=== PATIENT | female | born 1950 | race Caucasian/White ===

== ENCOUNTER → 2016-05-16 | Outpatient (CLI) | payer MEDICARE ==
[~2016-05-16] MED LIST: CALMOSEPTINE OINTMENT 3.5 G PACKET TOP ONE
== END ==
LOC: NWCC 10:34
PROVIDERS: ATTEND Internal Medicine
DX: T87.89 Other complications of amputation stump (principal); Y83.8 Other surgical procedures as the cause of abnormal reaction of the patient, or of later complication, without mention of misadventure at the time of the procedure; I70.233 Atherosclerosis of native arteries of right leg with ulceration of ankle; L97.312 Non-pressure chronic ulcer of right ankle with fat layer exposed; R60.0 Localized edema; I70.291 Other atherosclerosis of native arteries of extremities, right leg
CPT/HCPCS: 11042; 11045; A6209; A9270; G0463

== ENCOUNTER → 2016-05-30 | Outpatient (CLI) | payer MEDICARE ==
[~2016-05-30] MED LIST changes: -CALMOSEPTINE OINTMENT 3.5 G PACKET TOP ONE; +SALINE FLUSH 10ml SYRINGE IVF ONE
== END ==
LOC: NWCC 11:11
PROVIDERS: ATTEND Internal Medicine
DX: T87.89 Other complications of amputation stump (principal); Y83.8 Other surgical procedures as the cause of abnormal reaction of the patient, or of later complication, without mention of misadventure at the time of the procedure; I70.233 Atherosclerosis of native arteries of right leg with ulceration of ankle; L97.312 Non-pressure chronic ulcer of right ankle with fat layer exposed; R60.0 Localized edema; I70.291 Other atherosclerosis of native arteries of extremities, right leg
CPT/HCPCS: 11042; A6209; G0463

== ENCOUNTER → 2016-06-13 | Outpatient (CLI) | payer MEDICARE, MEDICAID | LOC: NWCC 10:47 | PROVIDERS: ATTEND Internal Medicine | DX: T87.9 Unspecified complications of amputation stump (principal); Y83.8 Other surgical procedures as the cause of abnormal reaction of the patient, or of later complication, without mention of misadventure at the time of the procedure; I70.248 Atherosclerosis of native arteries of left leg with ulceration of other part of lower leg; L97.822 Non-pressure chronic ulcer of other part of left lower leg with fat layer exposed; I70.233 Atherosclerosis of native arteries of right leg with ulceration of ankle; L97.312 Non-pressure chronic ulcer of right ankle with fat layer exposed; R60.1 Generalized edema; I70.291 Other atherosclerosis of native arteries of extremities, right leg; Z89.512 Acquired absence of left leg below knee; L53.9 Erythematous condition, unspecified | CPT/HCPCS: 11042; A6021; A6209; A6210; G0463 ==

== ENCOUNTER → 2016-06-28 | Outpatient (CLI) | payer MEDICARE, MEDICAID ==
[~2016-06-28] MED LIST changes: +CALMOSEPTINE OINTMENT 3.5 G PACKET TOP ONE; -SALINE FLUSH 10ml SYRINGE IVF ONE; +SALINE FLUSH 10ml SYRINGE ONE
== END ==
LOC: NWCC 10:55
PROVIDERS: ATTEND Internal Medicine
DX: T87.89 Other complications of amputation stump (principal); Y83.8 Other surgical procedures as the cause of abnormal reaction of the patient, or of later complication, without mention of misadventure at the time of the procedure; I70.248 Atherosclerosis of native arteries of left leg with ulceration of other part of lower leg; L97.829 Non-pressure chronic ulcer of other part of left lower leg with unspecified severity; L97.822 Non-pressure chronic ulcer of other part of left lower leg with fat layer exposed; I70.233 Atherosclerosis of native arteries of right leg with ulceration of ankle; L97.312 Non-pressure chronic ulcer of right ankle with fat layer exposed; R60.0 Localized edema; I70.291 Other atherosclerosis of native arteries of extremities, right leg; Z89.512 Acquired absence of left leg below knee
CPT/HCPCS: 11042; A6021; A6209; A9270; G0463

== ENCOUNTER → 2016-07-12 | Outpatient (CLI) | payer MEDICARE, MEDICAID ==
[~2016-07-12] MED LIST changes: +SALINE FLUSH 10ml SYRINGE IVF ONE; -SALINE FLUSH 10ml SYRINGE ONE
== END ==
LOC: NWCC 10:57
PROVIDERS: ATTEND Internal Medicine
DX: T87.89 Other complications of amputation stump (principal); Y83.8 Other surgical procedures as the cause of abnormal reaction of the patient, or of later complication, without mention of misadventure at the time of the procedure; I70.248 Atherosclerosis of native arteries of left leg with ulceration of other part of lower leg; L97.829 Non-pressure chronic ulcer of other part of left lower leg with unspecified severity; I70.233 Atherosclerosis of native arteries of right leg with ulceration of ankle; L97.312 Non-pressure chronic ulcer of right ankle with fat layer exposed; I70.291 Other atherosclerosis of native arteries of extremities, right leg; R60.0 Localized edema; Z89.512 Acquired absence of left leg below knee; L53.9 Erythematous condition, unspecified
CPT/HCPCS: 11042; 87070; 87075; 87077; 87147; 87186; 87205; A6209; A9270; G0463